=== PATIENT | female | born 1980 | race Two or more races ===

== ENCOUNTER 2024-10-07 06:19 | Outpatient (CLI) | payer BC ==
[2024-10-07 07:14] LABS: Hematocrit 40.6 % (36.0-46.0); Hemoglobin 13.8 g/dL (12.2-16.2); Mean Corpuscular Hemoglobin 30.0 pg (28.0-32.0); Mean Corpuscular Volume 88.0 fL (80.0-100.0); Nucleated Red Blood Cells % 0.0 %
[2024-10-07 08:28] LABS: Alanine Aminotransferase 22 U/L (7-40); Albumin 4.5 g/dL (3.2-4.8); Alkaline Phosphatase 63 U/L (46-116); Anion Gap 8 (5-15); BUN/Creatinine Ratio 10.8 (10.0-20.0); Calcium 9.9 mg/dL (8.7-10.4); Carbon Dioxide 26 mmol/L (20-31); Chloride 105 mmol/L (98-107); Potassium 4.2 mmol/L (3.5-5.1); Sodium 139 mmol/L (136-145); Total Protein 6.6 g/dL (5.7-8.2)
[2024-10-07 08:29] LABS: Bilirubin, Total 0.3 mg/dL (0.2-1.0); Blood Urea Nitrogen 8 mg/dL (9-23); Cholesterol 148 mg/dL (< 200); Glucose 108 mg/dL (74-106); HDL Cholesterol 36 mg/dL (40-59); Triglycerides 160 mg/dL (< 150)
[2024-10-07 08:32] LABS: Urine Protein, UAD Negative (Negative)
[2024-10-07 08:57] LABS: Iron 56.0 ug/dL (50-170)
[2024-10-07 09:00] LABS: Total Iron Binding Capacity 319.0 ug/dL (250-425)
[2024-10-07 09:07] LABS: Free T3 3.25 pg/mL (2.3-4.2)
[2024-10-07 09:09] LABS: Free T4 (Free Thyroxine) 1.15 ng/dL (0.89-1.76)
[2024-10-07 10:08] LABS: Uric Acid 6.8 mg/dL (3.1-7.8)
[2024-10-08 13:07] LABS: Anti-Centromere B Antibody <0.2 AI (0.0-0.9); Anti-Jo-1 Antibody <0.2 AI (0.0-0.9); Anti-dsDNA Antibody <1 IU/mL (0-9); Antichromatin Antibody <0.2 AI (0.0-0.9); Antiscleroderma-70 Antibody <0.2 AI (0.0-0.9); Sjogren's Anti-SS-A Antibody <0.2 AI (0.0-0.9); Sjogren's Anti-SS-B Antibody <0.2 AI (0.0-0.9)
[2024-10-09 05:08] LABS: Chlamydia Trachomatis, NAA Negative (Negative); Neisseria gonorrhoeae, NAA Negative (Negative)
== END 2024-10-07 17:00 | disposition home or self-care (01) ==
LOC: LAB 06:19
PROVIDERS: ATTEND Family Medicine
DX: Z00.00 Encounter for general adult medical examination without abnormal findings (principal)
CPT/HCPCS: 36415; 80053; 80061; 81001; 82607; 83036; 83516; 83540; 83550; 84403; 84439; 84480; 84481; 84550; 85025; 86225; 86235; 86431; 86703; 86780; 87086